=== PATIENT | female | born 1930 | race Caucasian/White ===

== ENCOUNTER → 2017-01-07 | Outpatient (CLI) | payer MEDICARE ==
[~2017-01-07] MED LIST: CALTRATE 600+D1 EACH PO; CENTRUM SILVER1 EAC1 PO; CORDARONE200 MG PO; ELIQUIS5 MG PO; GLUCOSAMINE CH1 EAC6 PO; KLOR-CON M1010 MEQ PO; LASIX20 MG PO; LIPITOR40 MG PO; NITROSTAT0.4 MG SL; PLAVIX75 MG PO; PROTONIX40 M1 PO; RANEXA500 MG PO
== END | disposition short-term general hospital (02) ==
LOC: CLORTH 08:09
DX: Z47.1 Aftercare following joint replacement surgery (principal); Z96.642 Presence of left artificial hip joint